=== PATIENT | female | born 1975 | race Caucasian/White ===

== ENCOUNTER 2017-11-15 13:46 | Outpatient (CLI) | payer MEDICAID | END 2017-11-15 15:14 | disposition home or self-care (01) | LOC: OBT 13:46 → L-D 13:47 → OBT 15:14 | DX: O36.8130 Decreased fetal movements, third trimester, not applicable or unspecified (principal); O09.513 Supervision of elderly primigravida, third trimester | CPT/HCPCS: 76818 ==

== ENCOUNTER 2017-12-23 12:52 | Outpatient (CLI) | payer MEDICAID ==
[2017-12-23 13:39] LABS: ADD UMIC YES; UR ASCORBIC ACID NEGATIVE (NEGATIVE); UR BACTERIA FEW /HPF (NONE SEEN); UR BILIRUBIN (Dip) NEGATIVE (NEGATIVE); UR BLOOD (Dip) NEGATIVE (NEGATIVE); UR CLARITY SLIGHTLY CLOUDY (CLEAR); UR COLOR YELLOW (YELLOW); UR GLUCOSE (Dip) NEGATIVE (NEGATIVE); UR KETONES (Dip) NEGATIVE (NEGATIVE); UR LEUKOCYTE ESTERASE (Dip) 3+ Leu/ul (NEGATIVE); UR NITRITE (Dip) NEGATIVE (NEGATIVE); UR RBC 2 /HPF (0-5); UR SPECIFIC GRAVITY (Dip) 1.012 (1.003-1.030); UR SQUAMOUS EPITHELIAL CELL FEW /HPF (FEW); UR TOTAL PROTEIN (Dip) NEGATIVE (NEGATIVE); UR UROBILINOGEN (Dip) NEGATIVE (NEGATIVE); UR WBC 2 /HPF (0-5)
== END 2017-12-23 15:30 | disposition home or self-care (01) ==
LOC: OBT 12:52 → L-D 12:52 → OBT 15:30
DX: O26.893 Other specified pregnancy related conditions, third trimester (principal); O09.523 Supervision of elderly multigravida, third trimester; Z3A.35 35 weeks gestation of pregnancy; R10.9 Unspecified abdominal pain
CPT/HCPCS: 76775; 76818; 81001; 87086

== ENCOUNTER 2018-01-05 10:40 | Inpatient (IN) | payer MEDICAID ==
[2018-01-05] MEDS ORDERED: IBUPROFEN 600 MG TAB PO (16:00)
[2018-01-05] MEDS ORDERED: LIDOCAINE 1% (MPF) 30 ML INJ INJ (16:00)
[2018-01-05] MEDS ORDERED: OXYTOCIN 30 UNITS/LR 500 ML IV ×2 (16:00→22:30)
[2018-01-05] MEDS ORDERED: CARBOPROST 250 MCG INJ IM ×2 (16:00→22:30)
[2018-01-05] MEDS ORDERED: METHYLERGONOVINE 0.2 MG INJ IM ×2 (16:00→22:30)
[2018-01-05] MEDS: LACTATED RINGER'S 1,000 ML IV* (16:26)
[2018-01-05 16:38] LABS: ADD MAN DIFF? NO
[2018-01-05 16:43] LABS: WHITE BLOOD COUNT 9.4 10^3/ul (4.8-10.8)
[2018-01-05 16:43] LABS: BASOPHILS % 0.3 % (0.0-2.0); EOSINOPHILS # 0.1 10^3/ul (0.0-0.5); EOSINOPHILS % 1.2 % (0.0-7.0); HEMATOCRIT 40.3 % (37.0-47.0); LYMPHOCYTES # 2.1 10^3/ul (0.8-2.9); LYMPHOCYTES % 22.7 % (15.0-51.0); MEAN CORPUSCULAR HEMOGLOBIN 27.8 pg (29.0-33.0); MEAN CORPUSCULAR HGB CONC 32.3 g/dl (32.0-37.0); MEAN CORPUSCULAR VOLUME 86.3 fl (82.0-101.0); MONOCYTE # 0.6 10^3/ul (0.3-0.9); MONOCYTES % 5.9 % (0.0-11.0); NEUTROPHIL # 6.5 10^3/ul (1.6-7.5); NEUTROPHILS % 69.1 % (39.0-77.0); PLATELET COUNT 295 10^3/UL (140-415); RED BLOOD COUNT 4.67 10^6/ul (4.20-5.40)
[2018-01-05] MEDS: OXYTOCIN 30 UNITS/LR 500 ML IV ×3 (16:53→20:28)
[2018-01-05 17:01] LABS: GLUCOSE 85 mg/dl (70-220)
[2018-01-05 17:03] LABS: INR 0.85; PARTIAL THROMBOPLASTIN TIME 25.3 Sec (23.0-35.0); PROTIME 11.7 Sec (11.9-14.9); PT RATIO 0.9
[2018-01-05] MEDS: BUTORPHANOL 2 MG INJ IV (18:35)
[2018-01-05] MEDS: LIDOCAINE 0.5% (SDV) 50 ML INJ INFIL (20:08)
[2018-01-05] MEDS: MISOPROSTOL 200 MCG TAB PR (20:20)
[2018-01-05] MEDS ORDERED: LACTATED RINGER'S 1,000 ML IV* (22:15)
[2018-01-05] MEDS ORDERED: MAGNESIUM HYDROXIDE 30ML CUP PO (22:30)
[2018-01-05] MEDS ORDERED: MISOPROSTOL 200 MCG TAB PR (22:30)
[2018-01-05] MEDS ORDERED: HYDROCODONE/APAP (5/325) TAB PO ×2 (22:30)
[2018-01-05] MEDS ORDERED: NA PHOSPHATE/BIPHOS 133 ML ENEMA PR (22:30)
[2018-01-05] MEDS ORDERED: NACL 0.9% 3 ML SYG IV (22:30)
[2018-01-05] MEDS ORDERED: ACETAMINOPHEN 325 MG TAB PO (22:30)
[2018-01-06] MEDS: IBUPROFEN 800 MG TAB PO ×5 (00:03→23:53)
[2018-01-06] MEDS: OXYTOCIN 30 UNITS/LR 500 ML IV (00:38)
[2018-01-06 08:15] LABS: ADD MAN DIFF? NO
[2018-01-06 08:23] LABS: BASOPHILS % 0.2 % (0.0-2.0); EOSINOPHILS # 0.1 10^3/ul (0.0-0.5); EOSINOPHILS % 0.5 % (0.0-7.0); HEMATOCRIT 38.9 % (37.0-47.0); HEMOGLOBIN 12.6 g/dl (12.0-16.0); LYMPHOCYTES # 2.1 10^3/ul (0.8-2.9); LYMPHOCYTES % 16.4 % (15.0-51.0); MEAN CORPUSCULAR HEMOGLOBIN 28.2 pg (29.0-33.0); MEAN CORPUSCULAR HGB CONC 32.4 g/dl (32.0-37.0); MEAN PLATELET VOLUME 11.1 fl (7.4-10.4); MONOCYTE # 0.8 10^3/ul (0.3-0.9); MONOCYTES % 6.2 % (0.0-11.0); NEUTROPHIL # 9.8 10^3/ul (1.6-7.5); PLATELET COUNT 289 10^3/UL (140-415); RED BLOOD COUNT 4.47 10^6/ul (4.20-5.40); RED CELL DISTRIBUTION WIDTH 14.1 % (11.5-14.5)
[2018-01-06 08:23] LABS: WHITE BLOOD COUNT 12.8 10^3/ul (4.8-10.8)
[2018-01-06] MEDS: BENZOCAINE 20% 56 ML SPRAY TOP (09:56)
[2018-01-06] MEDS: SENNA/DOCUSATE NA (8.6MG/50MG) TAB PO ×2 (09:56→21:19)
[2018-01-06] MEDS: WITCH HAZEL/GLYCERIN PAD PR (09:57)
[2018-01-06] MEDS: LANOLIN 7 GM TUBE TOP (17:30)
[2018-01-06 21:11] LABS: RAPID PLASMA REAGIN NONREACTIVE (NR)
[2018-01-07] MEDS: IBUPROFEN 800 MG TAB PO ×2 (05:56→11:43)
[2018-01-07] MEDS: DIPHTH/TET/ACEL PERTUSS (ADULT) 0.5 ML VIAL IM* (09:03)
[2018-01-07] MEDS: SENNA/DOCUSATE NA (8.6MG/50MG) TAB PO (09:03)
== END 2018-01-07 13:30 | disposition home or self-care (01) | DRG 807 ==
LOC: OBT 10:40 → PP1 01-06 15:05 → L-D 10:40 → OBT 15:20 → L-D 15:20
PROVIDERS: Obstetrics & Gynecology
PROC: 10E0XZZ Delivery of Products of Conception, External Approach (ICD-10-PCS; principal; 2018-01-05)
PROC: 0HQ9XZZ Repair Perineum Skin, External Approach (ICD-10-PCS; 2018-01-05)
DX: O40.3XX0 Polyhydramnios, third trimester, not applicable or unspecified (principal); Z37.0 Single live birth; O70.0 First degree perineal laceration during delivery; Z3A.37 37 weeks gestation of pregnancy
CPT/HCPCS: 76818; 82947; 85025; 85610; 85730; 86592; 86850; 86900; 86901; 90715; 99464

== ENCOUNTER 2018-10-05 12:00 | Emergency (ER) | payer MEDICAID | END 2018-10-05 16:50 | disposition home or self-care (01) | LOC: E/R 12:00 | DX: M25.551 Pain in right hip (principal); M54.9 Dorsalgia, unspecified | CPT/HCPCS: 72110; 73502; 73510; 81025; 99284-25 ==